=== PATIENT | female | born 1965 | race Caucasian/White ===

== ENCOUNTER 2019-02-21 16:49 | Emergency (ER) | payer OTHER | END 2019-02-21 21:29 | disposition left against medical advice (07) | LOC: JER 16:49 ==

== ENCOUNTER 2020-12-27 06:18 | Day surgery (SDC) | payer OTHER ==
[2020-12-27] MEDS: PHENYLEPHRINE 2.5% OPHTH SOLN 15 ML BOTTLE ONE ×3 (07:45→07:55)
[2020-12-27] MEDS: CYCLOPENTOLATE 2% OPHTH SOLN 2 ML BOTTLE ONE ×3 (07:45→07:55)
[2020-12-27] MEDS: CIPROFLOXACIN 0.3% EYE DROPS 5 ML BOTTLE ONE ×3 (07:45→07:55)
[2020-12-27] MEDS: TROPICAMIDE 1% OPHTH SOLN 15 ML BOTTLE ONE ×3 (07:45→07:55)
[2020-12-27 07:52] VITALS: BMI 25.7
[2020-12-27] MEDS ORDERED: POVIDONE-IODINE 5% OPHTHALMIC PREP 30 ML SOLUTION ONE (08:40)
[2020-12-27] MEDS ORDERED: TETRACAINE 0.5% OPHTH SOLN 2 ML BOTTLE ONE (08:40)
[2020-12-27] MEDS ORDERED: CARBACHOL 0.01% INTRA-OCULAR 1.5 ML VIAL ONE (08:40)
[2020-12-27] MEDS ORDERED: EPI-SHUGARCAINE (EPINEPHRINE 0.025% & LIDOCAINE-PF 0.75%) 4ML ONE (08:40)
[2020-12-27] MEDS ORDERED: MIDAZOLAM HCL 2 MG/2 ML SINGLE DOSE VIAL ONE (08:52)
[2020-12-27 10:11] VITALS: BP 165/86; PULSE 78; TEMP 98
== END 2020-12-27 11:20 | disposition home or self-care (01) ==
LOC: FASU 06:18
PROVIDERS: ATTEND Ophthalmology
PROC: 08RJ3JZ Replacement of Right Lens with Synthetic Substitute, Percutaneous Approach (ICD-10-PCS; principal; 2020-12-27 08:52)
DX: H25.11 Age-related nuclear cataract, right eye (principal)
CPT/HCPCS: 82962